=== PATIENT | female | born 1995 | race Caucasian/White ===

== ENCOUNTER 2023-06-02 09:08 | Outpatient (CLI) | payer BC, SELFPAY ==
--- NOTE | 2023-06-02 09:15 | US_ITS ---
Final Report Patient: YANN MANE Facility:?[facility] Patient ID:?[id number] Site Patient ID:?[id number]. Site :?1995 Study:?US OB Pelvis TV dating/viability-06/02/2023 9:56:52 AM Ordering Physician:SHELIA Final Report: INDICATION: First trimester scan, establish dates. COMPARISON: None. TECHNIQUE: Real-time mcdonough-scale imaging of the pelvis was performed. FINDINGS: Sonographic imaging demonstrates a single living intrauterine gestation. The embryo demonstrates a regular cardiac rate measuring 173 beats per minute. The embryo`s crown-rump length measurement of 2.3 cm corresponds to a gestational age of 9 weeks 0 days with a sonographic due date of 01/05/2024. There is a normal-appearing yolk sac. There are no gross abnormalities noted within the embryo at this early state of development. The gestational sac has a normal appearance. There is no evidence of a perigestational hemorrhage. The amount of fluid within the sac appears appropriate for gestational age. The cervix is closed. The myometrium appears normal. The ovaries are of normal size. Corpus luteal cyst right ovary measuring 1.9 cm. There are no suspicious fluid collections noted in the cul-de-sac. IMPRESSION: Normal first trimester OB ultrasound exam. Gestational age calculated at 9 weeks 0 days with a sonographic due date of 01/05/2024. Dictated by Medhat Law MD @ 06/02/2023 10:12:42 AM (Electronic Signature)
== END 2023-06-02 09:09 | disposition home or self-care (01) ==
LOC: US 09:09
PROVIDERS: PCP Student in an Organized Health Care Education/Training Program; Visit Provider Registered Nurse
DX: Z34.91 Encounter for supervision of normal pregnancy, unspecified, first trimester (principal); Z3A.09 9 weeks gestation of pregnancy
CPT/HCPCS: 76817; 84443; 86703; 86706; 86803; 86850; 86900; 86901; 87086; 87340; 87491; 87591

== ENCOUNTER 2023-06-02 11:15 | Outpatient (CLI) | payer BC, SELFPAY ==
[2023-06-02 15:52] LABS: Chlamydia DNA Amplified* Not Detected (No Detected); GC DNA Amplified* Not Detected (No Detected)
== END 2023-06-02 11:16 | disposition home or self-care (01) ==
PROVIDERS: PCP Student in an Organized Health Care Education/Training Program; Visit Provider Registered Nurse
DX: Z34.91 Encounter for supervision of normal pregnancy, unspecified, first trimester (principal)
CPT/HCPCS: 84443; 86592; 86703; 86704; 86706; 86762; 86787; 86803; 86850; 86900; 86901; 87086; 87340; 87491; 87591

== ENCOUNTER 2023-08-20 14:10 | Outpatient (CLI) | payer BC, SELFPAY ==
--- NOTE | 2023-08-20 14:00 | US_ITS ---
Patient: YANN MANE Facility:?[facility] Patient ID:?[id number] Site Patient ID:?[id number]. Site :?1995 Study:?US-OB Pelvis anatomy-08/20/2023 3:01:19 PM Ordering Physician:Zoya Serrano Final Report: HISTORY: anatomic survey. COMPARISON: Early OB ultrasound from 06/02/2023 TECHNIQUE: Ultrasound examination of the is performed with transabdominal technique. FINDINGS: A single intrauterine gestation is seen in cephalic presentation with regular cardiac activity at 138 beats per minute. The placenta is fundal and is free of the cervical os. The placental grade is 0 and the amniotic fluid volume is normal. Single deepest vertical pocket: Normal at 5.3 cm. The cervix is normal in length at 3.6 centimeters with no sign of dilatation. BPD: 4.7 cm 20 weeks 1 day HC: 17.7 cm 20 weeks 1 day AC: 15.9 cm 21 weeks 0 days FL: 3.4 cm 20 weeks 4 days The estimated age by ultrasound is 20 weeks 4 days, with an estimated date of delivery of 01/02/2023. This correlates well with the clinical age of 20 weeks 3 days and the previous ultrasound. The ultrasound ratios are normal. The estimated weight of 370 grams is at the 62nd percentile based on the clinical dates. The anatomic survey demonstrates normal appearing intracranial structures with a normal septum pellucidum and normal cerebellum. The nuchal thickness is normal at 5 mm, and the lateral ventricle is normal in diameter at 7 mm. The upper lip, 4 chamber heart, left and right ventricular outflow tracts, diaphragm, stomach, cord insertion site, 3-vessel cord, kidneys, bladder and spine are normal in appearance. IMPRESSION: 1. Single intrauterine gestation in cephalic presentation with regular cardiac activity. 2. Estimated gestational age is 20 weeks 4 days. 3. There has been appropriate interval growth. 4. Estimated weight of 370 grams is at the 62nd percentile based on the clinical dates. Dictated by Prasad Oscar MD @ 08/20/2023 9:02:07 PM Signed by:?Parsad Oscar MD @08/20/2023 9:02:07 PM (Electronic Signature)
== END 2023-08-20 14:11 | disposition home or self-care (01) ==
LOC: US 14:11
PROVIDERS: PCP Student in an Organized Health Care Education/Training Program; Visit Provider Advanced Practice Midwife
DX: Z34.92 Encounter for supervision of normal pregnancy, unspecified, second trimester (principal); Z3A.20 20 weeks gestation of pregnancy
CPT/HCPCS: 76805

== ENCOUNTER 2023-10-12 15:45 | Outpatient (CLI) | payer BC, SELFPAY | END 2023-10-12 15:46 | disposition home or self-care (01) | PROVIDERS: PCP Student in an Organized Health Care Education/Training Program; Visit Provider Advanced Practice Midwife | DX: Z34.83 Encounter for supervision of other normal pregnancy, third trimester (principal) | CPT/HCPCS: 86592; 86850 ==

== ENCOUNTER 2023-10-15 13:20 | Outpatient (CLI) | payer BC, SELFPAY | END 2023-10-15 13:21 | disposition home or self-care (01) | LOC: NFLDREF 13:21 | PROVIDERS: PCP Student in an Organized Health Care Education/Training Program; Visit Provider Advanced Practice Midwife | DX: Z34.83 Encounter for supervision of other normal pregnancy, third trimester (principal); Z67.21 Type B blood, Rh negative | CPT/HCPCS: J2791 ==

== ENCOUNTER 2023-11-04 13:35 | Outpatient (CLI) | payer BC, SELFPAY ==
[2023-11-04 13:38] VITALS: BP 114/68; PULSE 82; PULSE 89; O2SAT 97
[2023-11-04 13:50] VITALS: RESP 16; TEMP 36.8
[2023-11-04 14:25] LABS: Appearance Urine Clear (Clear); Bilirubin Urine Negative (Negative); Blood Urine Negative (Negative); Color Urine Yellow (Yellow); Glucose Urine Negative (Negative); Ketones Urine Negative (Negative); Leukocyte Esterase Urine Negative (Negative); Nitrite Urine Negative (Negative); Protein Urine Negative (Negative); Urobilinogen Urine 0.2 (0.2-1.0)
--- NOTE | 2023-11-04 14:50 | PM.OBLDTN ---
OB - Triage/Final Diagnosis Visit Information Date of evaluation: 11/04/23 Narrative: Daljit is a 28 year old 2 para 1 at 31.2 weeks gestation by LMP, who presents with vaginal bleeding and abdominal pain. She states that she had a large amount of dark pink bleeding when I wiped. This happened only once when at work and has not happened since. She has had some sharp pain on the right side of her abdomen and some intermittent cramping that radiates to her back. She is appreciating good movement and denies sign of urine or vaginal infection. Denies pain, burning, itching, discharge, or difficulty with urination. She feels that she is hydrated, has not had an increase in activity and denies recent intercourse. UA normal and UC pending. Reactive NST with uterine irritability noted. Abdomen palpates soft when irritability was noted on the TOCO. Encouraged hydration and discussed bleeding concerns in . Discussed when to be seen. All her questions were answered and denies other concerns at this time. Evaluation Laboratory results: Laboratory Tests 11/04/23 Range/Units 14:06 Urine Color Yellow (Yellow) Urine Appearance Clear (Clear) Urine pH 7.0 (5.0-8.5) Ur Specific [place] 1.010 (1.000-1.030) Urine Protein Negative (Negative) Urine Glucose (UA) Negative (Negative) Urine Ketones Negative (Negative) Urine Blood Negative (Negative) Urine Nitrite Negative (Negative) Urine Bilirubin Negative (Negative) Urine Urobilinogen 0.2 (0.2-1.0) Ur Leukocyte Esterase Negative (Negative) Vital signs: Vital Signs - 24 hr 11/04/23 13:38 11/04/23 13:50 Temperature 98.2 F Pulse Rate 82 Respiratory Rate 16 Blood Pressure 114/68 Pulse Oximetry 97 Fetus (Single) Heart Rate Baseline: 135 Senior Care Variability: Moderate (6-25) Monitor Accelerations: Present Monitor Decelerations: None Final Diagnosis (1) Vaginal bleeding in : Status: Acute (2) 31 weeks gestation of : Status: Acute
--- NOTE | 2023-11-04 15:29 | PC.OBNST ---
NST Note NST Note Start: 11/04/23 13:39 Freq: ONCE Status: Active Protocol: Document 11/04/23 15:10 MARVIN (Rec: 11/04/23 15:29 MARVIN Desktop) NST Note 2 Para (# of births) 1 EDC 01/04/24 Gestational Age In Weeks & Days 31 Weeks & 2 Days Patient Presented with Complaint(s) of Contractions/cramping,Vaginal bleeding Reactive Yes Appropriate for Gestational Age Yes RN Yury Vásquez RN Date 11/04/23 Reactive Yes Appropriate for Gestational Age Yes RODDY Wilder RN Date 11/04/23 OB NST charge Yes Complete NST Note via Write Note Yes The provider's electronic signature indicates the NST is reactive/appropriate for gestational age. *Note to provider: If an addendum is required, open the patient's chart and click on the note under the Nurse/Allied Health tab.
== END 2023-11-04 15:10 | disposition home or self-care (01) ==
LOC: OB OUT 13:35 → OB 13:36
PROVIDERS: PCP Student in an Organized Health Care Education/Training Program; Visit Provider Advanced Practice Midwife
DX: O47.03 False labor before 37 completed weeks of gestation, third trimester (principal); O46.93 Antepartum hemorrhage, unspecified, third trimester; Z3A.31 31 weeks gestation of pregnancy
CPT/HCPCS: 59025; 81003; G0463

== ENCOUNTER 2023-12-07 14:09 | Outpatient (CLI) | payer BC, SELFPAY ==
[2023-12-07 14:24] VITALS: PULSE 99; O2SAT 98
[2023-12-07 14:29] VITALS: PULSE 92; O2SAT 98
[2023-12-07 14:34] VITALS: PULSE 87; O2SAT 99
[2023-12-07 14:35] VITALS: BP 107/66; PULSE 82
[2023-12-07 14:58] LABS: Appearance Urine Slightly Cloudy (Clear); Bilirubin Urine Negative (Negative); Blood Urine Negative (Negative); Color Urine Yellow (Yellow); Glucose Urine Negative (Negative); Ketones Urine 1+ (Negative); Leukocyte Esterase Urine Negative (Negative); Nitrite Urine Negative (Negative); Protein Urine Negative (Negative)
[2023-12-07 15:09] LABS: Bacteria Urine Moderate; RBC Urine 0-2 (0-2); Squamous Epithelial Cell Urine Few (None-Few)
--- NOTE | 2023-12-07 16:07 | PM.OBLDTN ---
OB - Triage/Final Diagnosis Visit Information Narrative: The patient is a [] year old [] para [] at [] weeks gestation by [], who presents with []. [] Evaluation Vital signs: Vital Signs - 24 hr 12/07/23 14:24 12/07/23 14:29 12/07/23 14:34 Pulse Rate Blood Pressure Pulse Oximetry 98 98 99 12/07/23 14:35 12/07/23 14:35 Pulse Rate 82 Blood Pressure 107/66 Pulse Oximetry
[2023-12-07 16:16] LABS: Hematocrit 36.4 % (33.0-51.0); Hemoglobin* 11.7 gm/dL (12.0-16.0); Mean Corpuscular HGB Conc 32 gm/dL (32-36); Mean Corpuscular Hemoglobin 28 pg (26-34); Mean Corpuscular Volume 88 fL (80-100); Platelet Count* 240 K/uL (140-440); Red Blood Count 4.12 m/uL (4.00-5.20); White Blood Count* 12.15 K/uL (4.50-11.00)
[2023-12-07 16:18] LABS: Slide Review Reflex No
[2023-12-07 16:40] LABS: Alanine Aminotransferase* 30 U/L (4-35); Aspartate Amino Transferase* 37 U/L (12-35); Blood Urea Nitrogen* 6 mg/dL (5-24); Creatinine* 0.4 mg/dL (0.5-1.5); Estimated Glomerular Filt Rate 136 ml/min
[2023-12-07 20:30] LABS: Total Protein Urine 6 mg/dL
[2023-12-07 20:31] LABS: Creatinine Urine 90.5 mg/dL; Protein Creatinine Ratio Urine 0.07 (0-0.19)
--- NOTE | 2023-12-08 14:29 | PC.OBNST ---
NST Note NST Note Start: 12/07/23 14:27 Freq: ONCE Status: Discharge Protocol: Document 12/07/23 17:00 TARYN (Rec: 12/08/23 14:28 JRDionne [id number]) NST Note 2 Para (# of births) 1 EDC 01/04/24 Gestational Age In Weeks & Days 36 Weeks & 1 Days Patient Presented with Complaint(s) of Contractions/cramping,Pain Other Complaints Back pain Reactive Yes Appropriate for Gestational Age Yes RN Doc Perry RN Date 12/07/23 Reactive Yes Appropriate for Gestational Age Yes RN Sourav Wilder RN Date 12/07/23 OB NST charge Yes Complete NST Note via Write Note Yes The provider's electronic signature indicates the NST is reactive/appropriate for gestational age. *Note to provider: If an addendum is required, open the patient's chart and click on the note under the Nurse/Allied Health tab.
== END 2023-12-07 16:55 | disposition home or self-care (01) ==
LOC: OB OUT 14:10 → OB 14:10
PROVIDERS: PCP Student in an Organized Health Care Education/Training Program; Visit Provider Advanced Practice Midwife
DX: O47.03 False labor before 37 completed weeks of gestation, third trimester (principal); Z3A.36 36 weeks gestation of pregnancy
CPT/HCPCS: 36415; 59025; 81001; 81003; 82565; 82570; 84156; 84450; 84460; 84520; 85027; 87086; G0463

== ENCOUNTER 2023-12-17 11:31 | Outpatient (CLI) | payer BC, SELFPAY ==
[2023-12-18 14:48] LABS: Strep B DNA Probe Negative (Negative)
[2023-12-18 15:06] LABS: Strep B Susceptibility Needed? No
== END 2023-12-17 11:32 | disposition home or self-care (01) ==
LOC: NFLDREF 11:31
PROVIDERS: PCP Student in an Organized Health Care Education/Training Program; Visit Provider Midwife
DX: Z34.93 Encounter for supervision of normal pregnancy, unspecified, third trimester (principal); Z3A.37 37 weeks gestation of pregnancy
CPT/HCPCS: 87081; 87653

== ENCOUNTER 2024-01-08 02:26 | Outpatient (CLI) | payer BC, SELFPAY ==
[2024-01-08] VITALS (17 sets, daily range): BP systolic 111–129; BP diastolic 59–90; PULSE 77–97; RESP 18; TEMP 36.8–36.9; O2SAT 97–98; BMI 27.1
--- NOTE | 2024-01-08 02:39 | W.PM.LDBA ---
Subjective History of Present Illness Date Seen: 01/08/24 Narrative: Patient is being admitted to Labor and Delivery for spontaneous labor. She is a 28 year old at 40 4/7 weeks gestation. She reports increasing strength and frequency of contractions with quarter size bright red blood clots noted a couple of times. Her full history and physical was dictated by Krista MEADE on 12/17/2023. Please see this for details. Specific Issues/Plans G 2 P 1 Partner: Jeffrey Caraballo MateriT-21. Girl! #. B- Partner testing: consent signed, records were not available when requested. Rhogam: given 10/12 #. Dizziness at first OB, RESOLVED Increased hydration, small frequent meals. CBC w/ first OB labs. To notify us if worsening. Possible vertigo. TSH 1.9 at NOB. #Excessive weight gain in Flu: Declined, recommended. Covid: Declined, recommended. Needs pap OB - Problem Based A/P Additional Plan (1) Vaginal bleeding in : Status: Resolved (2) Spontaneous onset of labor: Status: Acute Plan ASSESSMENT:?? 28 at 40w4d gestation?? complicated by:??excess weight gain Labor type: Spontaneous, Early labor?? Category 1 FHR pattern.??? Labor complicated by: none?? GBS negative? ?? PLAN:?? 1. Routine intrapartum cares as ordered. Continue with expectant management?? 2. Monitoring per policy, intermittent?? 3. Planning unmedicated . Desires water . Consent signed. Hep C negative. Candidate for analgesia of choice.??? 4. Patient encouraged to reposition and ambulate to promote physiologic labor and .?? 5. Anticipate ? OB Result Labs Blood Type: B (-) negative Rubella: immune RPR/VDLR: nonreactive GBS Status: negative HBsAG: negative OB Exam Physical Exam Narrative: Vitals Reviewed Constitutional:? Alert and oriented x3 HEENT:? Normocephalic, atraumatic Neck:? Supple Lungs:? Clear to auscultation bilaterally Heart:? Regular rate and rhythm, no murmur, rub or gallop Abdomen:? Soft, nontender, and gravid. Vertex by Josh's, confirmed with cervical exam. Extremities:? No edema or erythema Cervix: 3 cm/80%/-1 station/vertex NST: 130 bpm/moderate variability/accelerations present/decelerations absent/regular contractions moderate to palpate
[2024-01-08 03:49] LABS: Basophils Percent Auto 0.1 % (0.0-3.0); Eosinophils Percent Auto 0.3 % (0.0-7.0); Hemoglobin* 11.7 gm/dL (12.0-16.0); Immature Granulocytes Pct Auto 0.3 %; Lymphocytes Percent Auto 15.2 % (20-44); Mean Corpuscular HGB Conc 33 gm/dL (32-36); Mean Corpuscular Hemoglobin 28 pg (26-34); Mean Corpuscular Volume 87 fL (80-100); Monocytes Percent Auto 7.7 % (0.0-11.0); Neutrophils Percent Auto 76.4 % (42.0-72.0); Platelet Count* 224 K/uL (140-440); RDW Coefficient of Variation % 13.6 % (11.5-15.5); Red Blood Count 4.15 m/uL (4.00-5.20); White Blood Count* 15.37 K/uL (4.50-11.00)
[2024-01-08 03:54] LABS: Slide Review Reflex No
--- NOTE | 2024-01-08 09:27 | PM.OBPNL ---
Subjective Date Seen: 01/08/24 Narrative: Carri Bocanegra is a at 40 4/7 weeks gestation that presented this morning in spontaneous labor, visibly uncomfortable and not coping well. Labor has since slowed down and she was able to sleep/rest. Her partner is here with her. She was under the impression she was going to be induced today. Her partner is upset by the idea of going home and change in conversation between providers. He states well I'm not bringing her back if we go home now. He then left the room. She was visibly upset by his comment but willing to discuss option. Objective Exam: Objective: Constitutional: Alert and oriented x3, no distress, coping well Vital signs stable, see nurse documentation Abdomen: gravid, contractions palpate mild with contractions and soft between Cervix: 3 cm/40%/-3 station/vertex; subjectively unchanged from previous NST: 130 bpm/moderate variability/15x15 accelerations/no decelerations/contractions irregular, every 2-7 minutes Vital Signs: Last Vital Signs Temp 98.3 F 01/08/24 08:03 Pulse 80 01/08/24 08:03 Resp 18 01/08/24 04:58 BP 111/70 01/08/24 08:03 Pulse Ox 98 01/08/24 04:48 Plan Plan: 28 at 40w4d gestation?? complicated by:??excess weight gain Labor type: Not in labor Category 1 FHR pattern.??? Labor complicated by: none?? GBS negative? ?? PLAN:?? 1. Routine intrapartum cares as ordered. Continue with expectant management. We discussed option of discharge home vs ways to encourage labor and re-evaluate. Her partner is visibly upset by the discussion and walked out of the room. We made a plan to encourage labor by means of activity. Due to staffing concerns, I am unable to augment or induce her labor at this time in a safe manor. This was discussed with her and she reports understanding. Will plan to re-evaluate later this morning to further make plan. 2. Monitoring per policy, intermittent?? 3. Encouraged to rest and eat breakfast. 4. Patient encouraged to reposition and ambulate to promote physiologic labor and .?Reviewed labor warm-up, stairs, ambulation, lunges, birthing ball, or other activities to try to encourage labor.?
--- NOTE | 2024-01-08 11:06 | W.PM.OB.MED ---
DS: Providers Provider Date Seen: 01/08/24 Date of admission: 01/08/24 02:54 Primary care physician: Trinity Stevens MD Admitting Clinician: Breanne Mobley CNM Attending Physician on discharge: Cinthya Robbins CNM DS: Diagnosis Discharge Diagnosis (1) Vaginal bleeding in : Status: Resolved (2) Pain during labor: Status: Acute (3) 40 weeks gestation of : Status: Acute (4) False labor after 37 completed weeks of gestation: Status: Acute Discharge Plan Discharge Disposition: Home, Self-Care Date of Admission: 01/08/24 02:54 Attending Provider on Discharge: Cinthya Robbins Primary Care Provider: Trinity Stevens Condition: Stable Anticipated Discharge Date/Time: 01/08/24 12:00 Discharge Medications: No Action No Known Home Medications Discharge Orders: Discharge Order (Routine); Ordered 01/08/24 Ordered By: Cinthya Robbins Patient Education: OB Undelivered at 35 weeks IUP or more Activity Level: Activity as Tolerated Discharge Diet: Regular Follow Up Appointments: [facility] [Provider Group] Forms: [facility] Info Instructions Hospital Course Course Hospital Course: Carri Bocanegra is a 28 yo is a at 40 4/7 weeks gestation that presented in early labor with some spotting/vaginal bleeding in early labor. She was very uncomfortable on arrival that it was thought she may precipitously deliver. SVE was 3/70/-1 at that time. She was admitted and requested to try to rest. Contractions slowly dissipated and spaced throughout the morning. She was offered discharge home this morning vs monitoring. She elected monitoring. Contractions have not increased in frequency or intensity. She denies any leaking of fluid or bleeding. Due to staffing, I am unable to proceed with IOL at this time as there is not a medical indication for this. She reports understanding although visibly discouraged. Her partner seems upset and repeats that they live about an hour away. She is scheduled for an elective IOL on Wednesday. She was again given an option to stay for some time, pending some other patients deliver but she agrees with discharging home. All questions answered. Labs Labs: Laboratory Tests 01/08/24 01/08/24 Range/Units 03:35 02:45 WBC 15.37 H (4.50-11.00) K/uL RBC 4.15 (4.00-5.20) m/uL Hgb 11.7 L (12.0-16.0) gm/dL Hct 36.0 (33.0-51.0) % MCV 87 (80-100) fL MCH 28 (26-34) pg MCHC 33 (32-36) gm/dL RDW Coeff of Adan 13.6 (11.5-15.5) % Plt Count 224 (140-440) K/uL Neut % (Auto) 76.4 H (42.0-72.0) % Lymph % (Auto) 15.2 L (20-44) % [place] % (Auto) 7.7 (0.0-11.0) % Eos % (Auto) 0.3 (0.0-7.0) % Baso % (Auto) 0.1 (0.0-3.0) % Neut # (Auto) 11.70 H (1.7-7.0) K/uL Lymph # (Auto) 2.30 (0.90-2.90) K/uL [place] # (Auto) 1.20 H (0.00-0.90) K/UL Eos # (Auto) 0.00 (0.00-0.50) K/uL Baso # (Auto) 0.00 (0.00-0.30) K/uL Abs Immat Gran (auto) 0.00 (0.00-0.30) K/uL Imm/Tot Granulo (auto) 0.3 % RPR Screen Pending Blood Type B Negative Antibody Screen POSITIVE Antibody Identification Pending OB Problem List Additional Plan (1) Vaginal bleeding in : Status: Resolved (2) Pain during labor: Status: Acute (3) 40 weeks gestation of : Status: Acute (4) False labor after 37 completed weeks of gestation: Status: Acute Plan at 40 4/7 weeks gestation Labor pain, resolved Admitted with labor pain last evening, contractions disipated this morning. Offered continued monitoring vs discharge home. Unable to induce at this time due to staffing concerns. May be able to later today or tomorrow but will plan to return for IOL on Wednesday if not delivered by then. Reviewed ways to encourage labor and labor positioning. Discharge to home. Delivery/Labor/Induction Plan Plan: expectant management DS: Summary Vital Signs Vital Signs: Vital Signs Temp Pulse Resp BP Pulse Ox 01/08/24 08:03 98.3 F 80 111/70 01/08/24 04:58 98.4 F 18 01/08/24 04:58 84 113/59 L 01/08/24 04:48 98 01/08/24 04:43 98 01/08/24 04:38 98 01/08/24 04:33 98 01/08/24 04:28 98 01/08/24 04:23 98 01/08/24 04:18 98 01/08/24 04:13 97 01/08/24 04:08 97 01/08/24 03:14 97 01/08/24 03:09 98 01/08/24 03:04 98 01/08/24 02:59 97 01/08/24 02:54 97 01/08/24 02:49 97 129/90 H 97 Discharge Examination General appearance: alert and in no apparent distress
[2024-01-10 09:03] LABS: Rapid Plasma Reagin (RPR) Non Reactive (Non Reactive)
--- NOTE | 2024-01-13 14:06 | PC.OBNST ---
NST Note NST Note Start: 01/08/24 02:46 Freq: ONCE Status: Cancelled Protocol: Document 01/08/24 09:00 HAO (Rec: 01/13/24 13:59 HAO Desktop) NST Note EDC 01/04/24 Gestational Age In Weeks & Days 41 Weeks & 2 Days Reactive Yes Appropriate for Gestational Age Yes RODDY Robbins RN Date 01/08/24 Reactive Yes Appropriate for Gestational Age Yes RODDY Rodriguez RNC Date 01/13/24 OB NST charge Yes Complete NST Note via Write Note Yes The provider's electronic signature indicates the NST is reactive/appropriate for gestational age. *Note to provider: If an addendum is required, open the patient's chart and click on the note under the Nurse/Allied Health tab.
== END 2024-01-08 11:45 | disposition home or self-care (01) ==
LOC: OB OUT 02:26 → OB 02:26 → OB OUT 02:54 → OB 11:12
PROVIDERS: PCP Student in an Organized Health Care Education/Training Program; Visit Provider Midwife
DX: O47.1 False labor at or after 37 completed weeks of gestation (principal); Z3A.40 40 weeks gestation of pregnancy
CPT/HCPCS: 36415; 59025; 84112; 85025; 86592; 86850; 86870; 86900; 86901; G0463

== ENCOUNTER 2024-01-11 07:24 | Inpatient (IN) | payer BC, SELFPAY ==
[2024-01-11] VITALS (18 sets, daily range): BP systolic 102–131; BP diastolic 61–72; PULSE 83–142; RESP 16; TEMP 36.4–37.4; O2SAT 92–100; BMI 26.9
--- NOTE | 2024-01-11 09:48 | W.PM.LDBA ---
Documented by User: Dora Tran CNM 01/11/24 11:09 Subjective History of Present Illness Time Seen by Provider: 09:00 Date Seen: 01/11/24 Narrative: Patient is being admitted to Labor and Delivery for IOL for post-dates. She is a 28 year old at 41 weeks gestation. Her full history and physical was documented by DESHAUN Mobley on 12/17/2023. Please see this for details. Pt is planning a waterbirth. Specific Issues/Plans G 2 P 1 Partner: Jeffrey Caraballo MateriT-21. Girl! H&P completed by DESHAUN Mobley 12/17/2023 #. B- Partner testing: consent signed, records were not available when requested. Rhogam: given 10/12 #. Dizziness at first OB, RESOLVED Increased hydration, small frequent meals. CBC w/ first OB labs. To notify us if worsening. Possible vertigo. TSH 1.9 at NOB. #Excessive weight gain in Flu: Declined, recommended. Covid: Declined, recommended. Needs pap OB - Problem Based A/P Additional Plan (1) Encounter for induction of labor: Status: Acute (2) Post-dates : Status: Acute (3) Rh negative status during : Status: Acute (4) 41 weeks gestation of : Status: Acute Plan 28 at 41 weeks gestation?? Labor type: Induced?? Category 1 FHR pattern.? GBS negative?? Delivery/Labor/Induction Plan Plan: induction Induction method: per pitocin protocol OB Result Labs Blood Type: B (-) negative Rubella: immune RPR/VDLR: nonreactive GBS Status: negative HBsAG: negative OB Exam Physical Exam Narrative: Vitals Reviewed Constitutional:? Alert and oriented x3 HEENT:? Normocephalic, atraumatic Neck:? Supple Abdomen:? Soft, nontender, and gravid. Vertex by cervical exam. Extremities:? No edema or erythema Cervix: 4 cm/70%/-1 station/vertex NST: 140 bpm/moderate variability/+ accelerations/no decelerations/mild contractions Detailed Labor and Delivery Exam Patient Gravid: Yes Documented by User: Cinthya Robbins CNM 01/12/24 09:45 Subjective History of Present Illness Narrative: Patient is being admitted to Labor and Delivery for []. She is a 28 year old at weeks gestation. Her full history and physical was dictated by [] on []. Please see this for details. [] Specific Issues/Plans G 2 P 1 Partner: Jeffrey Caraballo MateriT-21. Girl! H&P completed by DESHAUN Mobley 12/17/2023 #. B- Partner testing: consent signed, records were not available when requested. Rhogam: given 10/12 #. Dizziness at first OB, RESOLVED Increased hydration, small frequent meals. CBC w/ first OB labs. To notify us if worsening. Possible vertigo. TSH 1.9 at NOB. #Excessive weight gain in Flu: Declined, recommended. Covid: Declined, recommended. Needs pap OB - Problem Based A/P Additional Plan (1) Encounter for induction of labor: Status: Acute (2) Post-dates : Status: Acute (3) Rh negative status during : Status: Acute (4) 41 weeks gestation of : Status: Acute Plan 30 at 41 weeks gestation?? Labor type: Induced?? Category 1 FHR pattern.? GBS negative? ? PLAN:? 1. Routine intrapartum cares as ordered. Discussed options of cytotec, pit, or AROM per patient request. Patient agreeable to Pitocin at this time. 2. Monitoring per policy, continuous with pitocin? 3. Planning unmedicated . Desires water . Consent signed. Hep C negative. Candidate for analgesia of choice.?? 4. Patient encouraged to reposition and ambulate to promote physiologic labor and .? 5. Anticipate ?? OB Exam Physical Exam Vital signs: Temp Pulse BP Pulse Ox 97.6 F 85 122/72 98 01/11/24 07:38 01/11/24 07:38 01/11/24 07:38 01/11/24 07:39
[2024-01-11] MEDS: OXYTOCIN 30 unit/500 ML in NS 30 UNIT/500 ML BAG IVPB (10:13)
[2024-01-11] MEDS: LACTATED RINGERS 1000 ML 1,000 ML 125 ML IV (10:14)
[2024-01-11 11:16] LABS: Basophils Percent Auto 0.1 % (0.0-3.0); Eosinophils Percent Auto 0.1 % (0.0-7.0); Hematocrit 34.8 % (33.0-51.0); Hemoglobin* 11.3 gm/dL (12.0-16.0); Immature Granulocytes Pct Auto 0.3 %; Lymphocytes Percent Auto 8.7 % (20-44); Mean Corpuscular HGB Conc 33 gm/dL (32-36); Mean Corpuscular Hemoglobin 28 pg (26-34); Mean Corpuscular Volume 86 fL (80-100); Monocytes Percent Auto 6.6 % (0.0-11.0); Neutrophils Percent Auto 84.2 % (42.0-72.0); Platelet Count* 222 K/uL (140-440); RDW Coefficient of Variation % 13.7 % (11.5-15.5); Red Blood Count 4.05 m/uL (4.00-5.20); White Blood Count* 19.11 K/uL (4.50-11.00)
[2024-01-11 11:18] LABS: Slide Review Reflex No
--- NOTE | 2024-01-11 14:39 | W.PM.VAGDE_ITS ---
Documented by User: Dora Tran CNM 01/14/24 13:57 OB Procedure Vag Delivery Mother Details Mother Details: The patient is a 28 year-old, 2, Para 1, admitted on 01/11/24 at 41 weeks gestation. Additional Details Amniotic Membrane Status: AROM Amniotic Membrane Rupture Date: 01/11/24 Amniotic Membrane Rupture Time: 12:19 Amniotic Membrane Fluid Description: Meconium Stained Analgesia/Anesthesia Type: None Waterbirth: No Pitcoin: Yes Intrapartal Events: Labor Induction and Mod/Heavy Meconium Fluid Induction Method: per pitocin protocol Delivery augmentation: rupture of membranes Labor Onset: 11:00 Complete: 13:50 Pushin:50 Heart: heart tones during second stage were reassuring with variables which resolved between contractions. Delivery Details Delivery Date: 01/11/24 Delivery Time: 14:12 Route of delivery: Gender: Female Infant Viability: Alive; Heart Rate Present Position at Delivery: OA Delivery Details: Patient was admitted for IOL for post-dates and progressed normally. AROM at 1219 with light meconium stained fluid. Patient was assumed complete at 1350 and pushing at 1350. of a viable female at 1412 in semi-reclining position in bed. Vertex delivered OA. No nuchal cord or shoulder. Body delivered easily and without incident. After delivery of body, thick meconium stained amniotic fluid noted that was not previously visible in labor. passed to mother's abdomen with spontaneous breathing, mouth was bulb suctioned. Cord was clamped and cut at ~30 seconds and handed off to waiting [employer] SERVICE TECHNICIAN for further evaluation; see their note for details. APGARS were 4 at one minute and 7 at five minutes and 9 at ten minutes respectively. Intact placenta with a 3 vessel cord delivered spontaneously at 1417, with notable meconium staining of membranes. Fundus firm. Perineum intact. QBL 200 cc. Mother and baby stable; mother plans to breastfeed. Infant weight 6lb 13oz.? Additional Details Shoulder Dystocia: No Placenta Delivery Time: 14:17 Placental Delivery Description: Spontaneous Procedure Done: Global Blood Loss: 200 Laceration: None Episiotomy Description: None Blood Loss Measurement Type: EBL Bakri Used: No Cord Vessel Description: 3 Vessels, Nuchal Cord, Loose and Delivered through Event Summary Status: Mother and were stable after delivery. Disposition: floor Documented by User: Cinthya Robbins CNM 01/12/24 07:25 OB Procedure Vag Delivery Delivery Details Delivery Details: Patient was admitted for IOL for post-dates and progressed normally. AROM at 1219 with meconium stained fluid. Patient was assumed complete at 1350 and pushing at 1350. of a viable female at 1412 in semi-reclining position in bed. Vertex delivered OA. No nuchal cord or shoulder. Body delivered easily and without incident. passed to mothers abdomen with a vigorous cry. Cord was clamped and cut at > 5 minutes. APGARS were 4 at one minute and 7 at five minutes and 9 at ten minutes respectively. Mouth was bulb suctioned. Intact placenta with a 3 vessel cord delivered spontaneously at 1417. Fundus firm. Perineum intact. QBL 200 cc. Mother and baby stable; mother plans to breastfeed. Infant weight 6lb 13oz.? 1 Minute Interval Total Score: 4 5 Minute Interval Total Score: 7 10 Minute Interval Total Score: 9
[2024-01-11] MEDS: ACETAMINOPHEN 500 MG TABLET 1000 MG PO ×2 (16:09→21:21)
[2024-01-12 01:25] VITALS: BP 117/69; PULSE 75; RESP 16; TEMP 36.6; O2SAT 97
[2024-01-12] MEDS: ACETAMINOPHEN 500 MG TABLET 1000 MG PO ×3 (03:44→20:02)
[2024-01-12 03:46] VITALS: BP 105/65; PULSE 75; RESP 16; TEMP 36.4; O2SAT 97
[2024-01-12 07:50] VITALS: BP 122/79; PULSE 77; RESP 16; TEMP 36.6
--- NOTE | 2024-01-12 09:31 | PM.OBPNVD1 ---
OB - PN:Subj Subjective Date Seen: 01/12/24 Patient comments OB post-: no complaints, pain well controlled, tolerating diet and flatus present [place] status: and doing well Narrative: Carri is a 28 y.o. G 2 P 2 who was admitted to [facility] for [facility] for post-dates . ?She had a NVD that was uncomplicated. The patient feels well. ?The pain is well controlled with current medications. ?She has no new complaints. ?She is breast feeding and reports things are going well. the patient has done well.? Vitals have been stable.? She has remained afebrile.? Has a good appetite, is tolerating a general diet. ?She is voiding without difficulty.? She is passing gas and has not had a bowel movement.? She is ambulating and denies any dizziness.? Has small amount of rubra lochia. Problems: no OB - PN: Obj Exam Physical Exam: Vital signs: Temp Pulse Resp BP Pulse Ox O2 Del Method 97.5 F L 75 16 105/65 97 Room Air 01/12/24 03:46 01/12/24 03:46 01/12/24 03:46 01/12/24 03:46 01/12/24 03:46 01/12/24 03:46 Narrative: GENERAL APPEARANCE:? normal affect, alert, no distress MOOD:? appropriate CHEST:? clear to auscultation HEART:? regular rate and rhythm ABDOMEN:? soft, non-tender the uterine fundus is at Umbilicus, Midline and is appropriate for the stage of recovery. PERINEUM:? mild edema of the perineum. EXTREMITIES:? normal and no edema OB - PN: Obj Data Labs Labs: Laboratory Results - last 24 hr 01/11/24 01/12/24 11:04 06:23 WBC 19.11 H RBC 4.05 Hgb 11.3 L Hct 34.8 MCV 86 MCH 28 MCHC 33 RDW Coeff of Adan 13.7 Plt Count 222 Neut % (Auto) 84.2 H Lymph % (Auto) 8.7 L [place] % (Auto) 6.6 Eos % (Auto) 0.1 Baso % (Auto) 0.1 Neut # (Auto) 16.10 H Lymph # (Auto) 1.70 [place] # (Auto) 1.30 H Eos # (Auto) 0.00 Baso # (Auto) 0.00 Abs Immat Gran (auto) 0.10 Imm/Tot Granulo (auto) 0.3 Blood Type B Negative Antibody Screen NEGATIVE Screen Negative OB - PN: A/P Delivery Assessment and Plan (1) care and examination immediately after delivery: Status: Acute (2) Lactating mother: Status: Acute (3) Rh negative status during : Status: Acute Plan day: 1 Plan: routine care Comments: plan: Routine care , may see if needed Hgb 11.3. Rhogam recommended today, baby Rh +.
[2024-01-12] MEDS: DOCUSATE SODIUM 100 MG CAPSULE PO (16:07)
[2024-01-12 16:15] VITALS: BP 108/74; PULSE 77; RESP 16; TEMP 36.7
[2024-01-12 22:35] VITALS: BP 125/76; PULSE 68; RESP 16; TEMP 36.6; O2SAT 97
[2024-01-13 03:29] LABS: Rapid Plasma Reagin (RPR) Non Reactive (Non Reactive)
[2024-01-13] MEDS: ACETAMINOPHEN 500 MG TABLET 1000 MG PO ×3 (04:40→16:27)
[2024-01-13 04:42] VITALS: BP 128/76; PULSE 72; RESP 16; TEMP 36.4; O2SAT 97
[2024-01-13 08:09] VITALS: BP 119/82; PULSE 71; RESP 16; TEMP 36.6; O2SAT 98
--- NOTE | 2024-01-13 08:09 | PM.OBDSVD1 ---
DS: Providers Provider Date Seen: 01/13/24 Date of admission: 01/11/24 07:24 Primary care physician: Trinity Stevens MD Admitting Clinician: Cinthya Robbins CNM Attending Physician on discharge: Cinthya Robbins CNM Date of Discharge: 01/13/24 DS: Diagnosis Discharge Diagnosis (1) Lactating mother: Status: Acute (2) care and examination immediately after delivery: Status: Acute (3) Anxiety: Status: Acute Exam Narrative: Exam Narrative: GENERAL APPEARANCE:? normal affect, alert, no distress? MOOD:? appropriate? CHEST:? clear to auscultation and percussion? HEART:? regular rate and rhythm? ABDOMEN:? soft, non-tender the uterine fundus is 2 cm Below Umbilicus, Midline and is appropriate for the stage of recovery. ? PERINEUM:? mild edema of the perineum, there is a intact perineum that is healing well.? EXTREMITIES:? normal and no edema? Patient has no complaints? No active bleeding?? Doing well? She is requesting discharge home.? Const: Vital Signs, click to edit/add: Vital Signs - 24 hr 01/12/24 16:15 01/12/24 22:35 01/13/24 04:42 Temperature 98.1 F 97.9 F 97.5 F L Pulse Rate [Pulse Oximeter] 77 68 72 Respiratory Rate 16 16 16 Blood Pressure [Ri ght Arm] 108/74 125/76 128/76 Pulse Oximetry 97 97 Oxygen Delivery Me thod Room Air Room Air Room Air Documenting provider has reviewed patient's vital signs: yes OB - DS: Summary Hospital Course Hospital Course: Carri is a 28 year old G 2 P 1 at 41.0 weeks gestation that was admitted to the Center on 01/11/24 for postdates IOL. She had a vaginal delivery complicated by moderate to thick meconium stained fluid. Baby was on oxygen and IV antibiotics but is improving. She delivered a viable female . She is breast feeding and working with to make sure I can feed her longer than she did with her last child. the patient has done well. Her pain is well controlled with current medications.? She has no new complaints.? Urinary output is adequate and she is voiding without difficulty.? Has a good appetite, is tolerating a general diet, is passing flatus, and has not had a bowel movement.? Has small amount of rubra lochia.? She is ambulating well. She has a history of anxiety . Declines medications at this time but will consider if symptoms present. She is uncertain what she would like to do for contraception . Reviewed options compatible with . Peripartum Data delivery method: Vaginal Laceration description: None Episiotomy description: None Gender: Female Discharge Plan: Home Status at Discharge Functional status at discharge: independent ambulation Overall status at discharge: patient is progressing back to baseline Time Spent with Patient Time attestation: Total time spent providing and/or coordinating discharge services: Discharge Plan Discharge Disposition: Home, Self-Care Date of Admission: 01/11/24 07:24 Attending Provider on Discharge: Jany Aguero Primary Care Provider: Trinity Stevens Condition: Stable Anticipated Discharge Date/Time: 01/13/24 12:00 Discharge Medications: New docusate sodium 100 mg Capsule 100 mg PO DAILY Qty: 90 0RF Rx Instructions: Take 1-2 tablets daily as needed for constipation. ibuprofen 600 mg Tablet 600 mg PO Q6H PRNQty: 30 0RF Continued No Known Home Medications Discharge Orders: Discharge Order (Routine); Ordered 01/13/24 Ordered By: Jany Aguero Consulting provider completed their portion of the discharge: Yes Patient Education: OB Vaginal/Breast Feeding Additional Instructions: Discharge instructions were reviewed with the patient including signs and symptoms of infection and home going medications.? Lifting Restrictions: 20 pounds for 6? weeks? ?? Do not drive while taking narcotic pain meds.? Off Work or School for 6 weeks.? ?? Symptoms to report to doctor:? -Bleeding that saturates more than one pad per hour? -Passing clots larger than the size of a golf ball? -Pain not relieved by prescribed medication? -Fever above 100.4 degrees Fahrenheit? -A foul vaginal odor? -Difficulty in emotions, mood and functions? -Thoughts of hurting yourself and/or ? -Painful, reddened area in your breast? -Any drainage, redness or tenderness in your IV/epidural site? -Severe headache that doesn't improve after taking medications? -Changes in vision, including temporary loss of vision, blurred vision, and/or light sensitivity? -Upper abdominal pain (usually under ribs on the right side)? -Decrease in urination or painful, frequent urinating? -Chest pain? -Shortness of breath? -Tenderness or pain with redness and/swelling in the calf(s) of your leg? ?? Follow Up in clinic in 2 and 6 weeks.? ?? consultation services are available to all mothers and babies for the first year after delivery.? To make an appointment, please call [phone].? Activity Level: Activity as Tolerated Discharge Diet: Regular Follow Up Appointments: [facility] [Provider Group] Forms: MyHealth Info Instructions
[2024-01-13 14:23] VITALS: BP 122/77; PULSE 77; RESP 16; TEMP 36.9; O2SAT 98
[2024-01-13] MEDS: DOCUSATE SODIUM 100 MG CAPSULE PO (16:27)
== END 2024-01-13 16:35 | disposition home or self-care (01) | DRG 560 ==
PROVIDERS: Advanced Practice Midwife; Admitting Provider Advanced Practice Midwife; PCP Student in an Organized Health Care Education/Training Program; Visit Provider Advanced Practice Midwife
DX: O48.0 Post-term pregnancy (principal); O26.893 Other specified pregnancy related conditions, third trimester; Z67.21 Type B blood, Rh negative; O99.344 Other mental disorders complicating childbirth; F41.9 Anxiety disorder, unspecified; O77.0 Labor and delivery complicated by meconium in amniotic fluid; Z37.0 Single live birth; Z3A.41 41 weeks gestation of pregnancy
CPT/HCPCS: 36415; 85025; 85461; 86592; 86850; 86900; 86901; 88307; A9270; J2791; J7120

== ENCOUNTER 2024-03-28 13:58 | Outpatient (CLI) | payer BC, SELFPAY | END 2024-03-28 13:59 | disposition home or self-care (01) | PROVIDERS: PCP Student in an Organized Health Care Education/Training Program; Visit Provider Midwife | DX: A49.9 Bacterial infection, unspecified (principal); Z12.4 Encounter for screening for malignant neoplasm of cervix; Z83.49 Family history of other endocrine, nutritional and metabolic diseases | CPT/HCPCS: 84443; 87109; 88141; 88142 ==